=== PATIENT | male | born 1995 | race African-American/Black ===

== ENCOUNTER 2024-05-15 01:00 | Emergency (ER) | payer MEDICAID ==
[~2024-05-15] VITALS: Ht 177.8 cm; Wt 65.0 kg
[2024-05-15 01:28] VITALS: O2SAT 100
[2024-05-15] MEDS ORDERED: POLY10DR18 LEFTEYE (01:37)
[2024-05-15 02:01] VITALS: BP 127/76; PULSE 56; RESP 12; TEMP 37; O2SAT 99
== END 2024-05-15 02:05 | disposition home or self-care (01) ==
LOC: ER 01:00
DX: H10.9 Unspecified conjunctivitis (principal)
CPT/HCPCS: 99283